=== PATIENT | female | born 2000 | race African-American/Black ===

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

== ENCOUNTER → 2018-01-23 | Outpatient (CLI) | payer MEDICAID | LOC: OD 11:52 | PROVIDERS: ATTEND Nurse Practitioner Family | DX: N12 Tubulo-interstitial nephritis, not specified as acute or chronic (principal); R30.0 Dysuria | CPT/HCPCS: 87086; 87088; 87186 ==

== ENCOUNTER 2018-04-30 15:38 | Emergency (ER) | payer MEDICAID ==
[2018-04-30] MEDS ORDERED: LIDOCAINE 1% INJ-PF (10 MG/ML) 30 ML SDV INJ ONE (15:58)
[2018-04-30] MEDS ORDERED: LIDOCAINE 4% TRANSPARENT DRESSING 5 GM KIT TP ONE (15:58)
[2018-04-30] MEDS ORDERED: LIDOCAINE 4%/TETRACAINE 0.5%/EPI 0.18% 5 ML TOPICAL SOLN TOP ONE (16:10)
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
[2018-04-30 18:50] VITALS: BP 107/63
== END 2018-04-30 17:45 | disposition home or self-care (01) ==
LOC: ER 15:38
PROC: 0HQBXZZ Repair Right Upper Arm Skin, External Approach (ICD-10-PCS; principal; 2018-04-30)
DX: S41.111A Laceration without foreign body of right upper arm, initial encounter (principal); X99.1XXA Assault by knife, initial encounter; Y92.009 Unspecified place in unspecified non-institutional (private) residence as the place of occurrence of the external cause
CPT/HCPCS: 99283; 12032; J3490

== ENCOUNTER → 2018-05-30 | Outpatient (CLI) | payer MEDICAID ==
[2018-05-30 11:18] LABS: ABSOLUTE BASOPHILS # (AUTO) 0.1 10^3/uL (0.0-0.2); ABSOLUTE EOSINOPHILS # (AUTO) 0.4 10^3/uL (0.0-0.6); ABSOLUTE LYMPHOCYTES (AUTO) 2.7 10^3/uL (0.5-4.7); ABSOLUTE MONOCYTES (AUTO) 0.8 10^3/uL (0.1-1.4); ABSOLUTE NEUT (AUTO) 4.1 10^3/uL (1.7-8.2); BASOPHILS % (AUTO) 0.6 % (0-2); EOSINOPHILS % (AUTO) 5.5 % (0-6); HEMATOCRIT 36.7 % (36.0-47.0); HEMOGLOBIN 12.1 g/dL (12.0-15.5); LYMPHOCYTES % (AUTO) 33.7 % (13-45); MEAN CORPUSCULAR HEMOGLOBIN 28.1 pg (27.0-33.4); MEAN CORPUSCULAR VOLUME 85 fl (80-97); MONOCYTES % (AUTO) 10.1 % (3-13); PLATELET COUNT 301 10^3/uL (150-450); RED BLOOD COUNT 4.31 10^6/uL (3.72-5.28); RED CELL DISTRIBUTION WIDTH 16.9 % (11.5-14.0); SEGMENTED NEUTROPHILS % (AUTO) 50.1 % (42-78); TOTAL CELLS COUNTED % (AUTO) 100 %; WHITE BLOOD COUNT 8.1 10^3/uL (4.0-10.5)
[2018-05-30 11:38] LABS: ALANINE AMINOTRANSFERASE 28 U/L (9-52); ALBUMIN 4.4 g/dL (3.5-5.0); ALKALINE PHOSPHATASE 56 U/L (38-126); ANION GAP 7 (5-19); ASPARTATE AMINO TRANSFERASE 18 U/L (14-36); BILIRUBIN,DIRECT 0.1 mg/dL (0.0-0.4); BILIRUBIN,TOTAL 0.3 mg/dL (0.2-1.3); BLOOD UREA NITROGEN 9 mg/dL (7-20); CALCIUM 10.1 mg/dL (8.4-10.2); CARBON DIOXIDE 30 mmol/L (22-30); CHLORIDE 106 mmol/L (98-107); CHOLESTEROL 140.49 mg/dL (0-200); GLUCOSE 83 mg/dL (75-110); LITHIUM 0.4 mEq/L (0.6-1.2); POTASSIUM 4.8 mmol/L (3.6-5.0); SODIUM 142.8 mmol/L (137-145); TOTAL PROTEIN 7.6 g/dL (6.3-8.2); TRIGLYCERIDES 62 mg/dL (<150)
[2018-05-30 11:48] LABS: DIRECT LDL 60 mg/dL (<100)
== END ==
LOC: OD 10:32
PROVIDERS: ATTEND Physician Assistant
DX: F34.81 Disruptive mood dysregulation disorder (principal); Z79.899 Other long term (current) drug therapy
CPT/HCPCS: 36415; 80053; 80061; 80164; 80178; 83036; 84443; 85025

== ENCOUNTER 2018-10-01 06:59 | Emergency (ER) | payer MEDICARE, MEDICAID ==
--- NOTE | 2018-10-01 08:18 | ER Document Report ---
ED General - General Chief Complaint: Ankle Pain Stated Complaint: LEFT ANKLE PAIN Time Seen by Provider: 10/01/18 08:17 Primary Care Provider: AUSTIN HEATH PA-C [Primary Care Provider] - Follow up in 3-5 days TAMMIE PEREZ MD [ACTIVE STAFF] - Follow up in 1 week TRAVEL OUTSIDE OF THE [place] IN LAST 30 DAYS: No - HPI Notes: 18 year old female to the ED with C/O left ankle pain and swelling for over one year as well as intermittent bilateral upper thigh cramping, and low back pain. States she does not recall an injury but it is possible she may have injured the ankle some time ago. 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 As for her back, she has not had any injury but admits that bending and twisting is made worse. She denies any urinary complaints. Denies any recent travel, recent immobilization, recent surgery, fevers, chills, SOB, CP, abd pain, headache. She is not on control. - Related Data Allergies/Adverse Reactions: No Known Allergies Allergy (Verified 10/01/18 07:05) Past Medical History - General Information source: Patient - Social History Smoking Status: Current Every Day Smoker Frequency of alcohol use: Social Drug Abuse: None Family History: None, Reviewed & Not Pertinent Renal/ Medical History: Denies: Hx Peritoneal Dialysis Psychiatric Medical History: Reports: Hx Bipolar Disorder Review of Systems - Review of Systems Constitutional: Chills, Fever EENT: No symptoms reported Cardiovascular: denies: Chest pain, Palpitations, Heart racing, Orthopnea, Dyspnea, Syncope Respiratory: denies: Cough, Short of breath Gastrointestinal: denies: Abdominal pain, Diarrhea, Nausea, Vomiting Genitourinary: denies: Frequency, Flank pain Musculoskeletal: Back pain, Joint pain - left ankle pain, Ankle swelling - left ankle swelling Skin: Change in color Hematologic/Lymphatic: denies: Blood clots Neurological/Psychological: No symptoms reported -: Yes All other systems reviewed and negative Physical Exam - Vital signs Vitals: Temp Pulse Resp BP Pulse Ox 97.5 F 66 16 122/61 98 10/01/18 07:04 10/01/18 07:04 10/01/18 07:04 10/01/18 07:04 10/01/18 07:04 Interpretation: Normal - General General appearance: Appears well, Alert - HEENT Head: Normocephalic, Atraumatic Eyes: Normal Pupils: PERRL - Respiratory Respiratory status: No respiratory distress Chest status: Nontender Breath sounds: Normal Chest palpation: Normal - Cardiovascular Rhythm: Regular Heart sounds: Normal auscultation Murmur: No - Abdominal Inspection: Normal Distension: No distension Bowel sounds: Normal Tenderness: Nontender Organomegaly: No organomegaly - Back Back: Tender. No: CVA tenderness - mild TTP over the right lumbar paraspinals. There is no step off or defomrity. - Extremities General upper extremity: Normal inspection, Nontender, Normal color, Normal ROM, Normal temperature General lower extremity: Tender, Edema, Normal color, Normal ROM. No: Jackson's sign Ankle: Tender, Edema Notes: the left ankle is mildly edematou and TTP over the lateral malleolus. There is no gross deformity or ecchymosis. Patella tendon is intact. non tender to palpation over the bilateral calves. patient states that palpation over the thighs does give her some pain. Non tender to bilateral knees and hip bony joints. There is no erythema, skin changes. DP pulses intact and equal. Patient has FROM of BLE against resistance with 5/5 strength in flexion and extension. - Neurological Neuro grossly intact: Yes Cognition: Normal Orientation: AAOx4 [place] Coma Scale Eye Opening: Spontaneous [place] Coma Scale Verbal: Oriented [place] Coma Scale Motor: Obeys Commands [place] Coma Scale Total: 15 Speech: Normal Motor strength normal: LUE, RUE, LLE, RLE Sensory: Normal - Psychological Associated symptoms: Normal affect, Normal mood - Skin Skin Temperature: Warm Skin Moisture: Dry Skin Color: Normal Course - Vital Signs Vital signs: Temp Pulse Resp BP Pulse Ox 98.5 F 57 L 17 124/51 L 100 10/01/18 10:50 10/01/18 10:50 10/01/18 10:50 10/01/18 10:50 10/01/18 10:50 - Laboratory Result Diagrams: 10/01/18 09:23 10/01/18 09:23 Laboratory results interpreted by me: 10/01/18 10/01/18 09:23 09:23 RDW 16.5 H Urine Ketones TRACE H Urine Ascorbic Acid 40 H - Diagnostic Test Radiology reviewed: Image reviewed, Reports reviewed - Transfer of Care Notes: 10/01/18 Impression: Left ankle swelling, muscle cramps, back pain. Labs are reassuring as well as imaging. I applied an alicia wrap to the ankle and will send her to ortho for further follow up. Will write for NSaids. patient agrees with the plan. Discharge - Discharge Clinical Impression: Left ankle pain, Leg cramps, Low back pain Condition: Good Disposition: HOME, SELF-CARE Instructions: Ankle Exercise Program ([facility]), Low Back Pain ([facility]) Additional Instructions: FOLLOW UP WITH ORTHOPEDIST. RETURN IF WORSE. USE ALICIA WRAP. TAKE MEDICINES PRESCRIBED. ICE WHEN HOME FROM WORK. Prescriptions: Naproxen [Naprosyn] 500 mg PO BID #20 tablet Forms: Return to Work Referrals: AUSTIN HEATH PA-C [Primary Care Provider] - Follow up in 3-5 days TAMMIE PEREZ MD [ACTIVE STAFF] - Follow up in 1 week
--- NOTE | 2018-10-01 09:19 | RADIOLOGY REPORT (SQ) ---
EXAM DESCRIPTION: ANKLE LEFT COMPLETE COMPLETED DATE/TIME: 10/01/2018 8:48 am REASON FOR STUDY: ankle pain, swelling COMPARISON: None. NUMBER OF VIEWS: Three views. TECHNIQUE: AP, lateral, and oblique radiographic images acquired of the left ankle. LIMITATIONS: None. FINDINGS: MINERALIZATION: Normal. BONES: No acute fracture or dislocation. No worrisome bone lesions. JOINTS: No effusions. SOFT TISSUES: No soft tissue swelling. No foreign body. OTHER: No other significant finding. IMPRESSION: NEGATIVE STUDY OF THE LEFT ANKLE. NO RADIOGRAPHIC EVIDENCE OF ACUTE INJURY. TECHNICAL DOCUMENTATION: JOB ID: [id number] [employer]- All Rights Reserved Reading location - IP/workstation name: [email or web address]
[2018-10-01 09:35] LABS: ABSOLUTE BASOPHILS # (AUTO) 0.1 10^3/uL (0.0-0.2); ABSOLUTE EOSINOPHILS # (AUTO) 0.2 10^3/uL (0.0-0.6); ABSOLUTE LYMPHOCYTES (AUTO) 2.7 10^3/uL (0.5-4.7); BASOPHILS % (AUTO) 0.7 % (0-2); EOSINOPHILS % (AUTO) 2.4 % (0-6); HEMATOCRIT 36.1 % (36.0-47.0); LYMPHOCYTES % (AUTO) 34.2 % (13-45); MEAN CORPUSCULAR HEMOGLOBIN 27.7 pg (27.0-33.4); MEAN CORPUSCULAR HGB CONC 33.2 g/dL (32.0-36.0); MEAN CORPUSCULAR VOLUME 84 fl (80-97); MONOCYTES % (AUTO) 12.5 % (3-13); PLATELET COUNT 320 10^3/uL (150-450); RED BLOOD COUNT 4.32 10^6/uL (3.72-5.28); RED CELL DISTRIBUTION WIDTH 16.5 % (11.5-14.0); SEGMENTED NEUTROPHILS % (AUTO) 50.2 % (42-78); TOTAL CELLS COUNTED % (AUTO) 100 %; WHITE BLOOD COUNT 7.9 10^3/uL (4.0-10.5)
[2018-10-01 09:50] LABS: APPEARANCE,URINE SLIGHTLY-CLOUDY; BILIRUBIN,URINE NEGATIVE (NEGATIVE); COLOR,URINE YELLOW; GLUCOSE, URINE NEGATIVE (NEGATIVE); KETONES,URINE TRACE mg/dL (NEGATIVE); LEUKOCYTE ESTERASE,URINE NEGATIVE (NEGATIVE); NITRITE,URINE NEGATIVE (NEGATIVE); PROTEIN,URINE NEGATIVE (NEGATIVE); URINE SPECIFIC GRAVITY 1.026; UROBILINOGEN,URINE NEGATIVE mg/dL (<2.0)
[2018-10-01 09:55] LABS: ANION GAP 9 (5-19); BLOOD UREA NITROGEN 14 mg/dL (7-20); CALCIUM 9.9 mg/dL (8.4-10.2); CARBON DIOXIDE 26 mmol/L (22-30); CHLORIDE 105 mmol/L (98-107); GLUCOSE 89 mg/dL (75-110); POTASSIUM 4.3 mmol/L (3.6-5.0); SODIUM 139.6 mmol/L (137-145)
[2018-10-01 10:52] VITALS: BP 124/51
== END 2018-10-01 11:01 | disposition home or self-care (01) ==
LOC: ER 06:59
DX: M25.572 Pain in left ankle and joints of left foot (principal); M25.472 Effusion, left ankle; M54.5 Low back pain; R25.2 Cramp and spasm; R50.9 Fever, unspecified; F17.200 Nicotine dependence, unspecified, uncomplicated
CPT/HCPCS: 36415; 80048; 81001; 81025; 83735; 85025; 99283

== ENCOUNTER 2018-10-06 22:08 | Emergency (ER) | payer MEDICARE, MEDICAID ==
[2018-10-06 23:24] VITALS: BP 131/58
[2018-10-07 00:42] LABS: AMORPHOUS SEDIMENT,URINE TRACE /HPF
[2018-10-07 00:43] LABS: APPEARANCE,URINE CLOUDY; BILIRUBIN,URINE NEGATIVE (NEGATIVE); COLOR,URINE YELLOW; GLUCOSE, URINE NEGATIVE (NEGATIVE)
[2018-10-07 00:44] LABS: KETONES,URINE NEGATIVE (NEGATIVE); LEUKOCYTE ESTERASE,URINE LARGE (NEGATIVE); NITRITE,URINE NEGATIVE (NEGATIVE); PROTEIN,URINE 30 mg/dL (NEGATIVE); UROBILINOGEN,URINE NEGATIVE mg/dL (<2.0)
[2018-10-07] MEDS ORDERED: IBUPROFEN 600 MG TABLET PO ONE (00:47)
--- NOTE | 2018-10-07 01:04 | ER Document Report ---
HPI - HPI Time Seen by Provider: 10/06/18 23:58 Pain Level: 4 Context: Patient is a 18-year-old female who presents the emergency department with a chief complaint of dysuria. She has had her symptoms for the past week. She is a poor historian and cannot tell me whether or not she is having vaginal discharge or not. Patient denies any sexual activity. She has a history of anxiety and depression. - ROS Notes: REVIEW OF SYSTEMS: CONSTITUTIONAL : Denies recent illness. Denies recent unintentional weight loss. Denies fever, chills, or sweats. EENT: Denies eye, ear, throat, or mouth pain, discharge, or symptoms. Denies nasal or sinus congestion. CARDIOVASCULAR: Denies chest pain. RESPIRATORY: Denies shortness of breath, cough, congestion, difficulty breathing, or wheezing. GASTROINTESTINAL: Denies nausea, vomiting, and diarrhea. Denies abdominal pain. Denies constipation. GENITOURINARY: See HPI MUSCULOSKELETAL: Denies neck and back pain. Denies joint pain or swelling. SKIN: Denies rash, itchiness, or lesions HEMATOLOGIC : Denies easy bruising or bleeding. LYMPHATIC: Denies swollen, painful, enlarged glands. NEUROLOGICAL: Denies no numbness or tingling denies weakness. Denies headache. Denies altered mental status. Denies alteration in speech. PSYCHIATRIC: Denies stress, anxiety, alteration in sleep patterns, or depression. All other systems reviewed and negative. - URINARY Urinary: REPORTS: Dysuria, Urgency, Frequency - REPRODUCTIVE Reproductive: DENIES: : Past Medical History - Social History Smoking Status: Never Smoker Family History: None, Reviewed & Not Pertinent Patient has suicidal ideation: No Patient has homicidal ideation: No Renal/ Medical History: Denies: Hx Peritoneal Dialysis Psychiatric Medical History: Reports: Hx Bipolar Disorder Vertical Provider Document - CONSTITUTIONAL Agree With Documented VS: Yes Exam Limitations: No Limitations Notes: PHYSICAL EXAMINATION: GENERAL: Appears well, healthy, well-nourished, mild distress, most likely due to anxiety. HEAD: Normocephalic, atraumatic. EYES: PERRL, conjunctiva normal, all extraocular movements intact, sclera nonicteric ABDOMEN: Normoactive bowel sounds. Soft, nontender, no guarding, no rebound tenderness, and no masses palpated. BACK: No CVA tenderness numbness noted. EXTREMITIES: Normal strength and range of motion, no pitting or edema. No cyanosis. NEUROLOGICAL: Moves all extremities upon command. Strength 5/5 in all extremities. PSYCH: Anxious. SKIN: Warm, dry. No rash, lesions, ulcerations noted. Normal skin turgor. - INFECTION CONTROL TRAVEL OUTSIDE OF THE [place] IN LAST 30 DAYS: No Course - Re-evaluation Re-evalutation: 10/07/18 01:13 I offered for the patient to have a pelvic exam done, as she is unsure of whether or not she has vaginal discharge or not. The patient is refusing at this time. She will be treated for urinary tract infection as she has a large amount of leukocytes in her urine. I have a very low suspicion for an infected kidney stone, as the patient has had her symptoms for the past week. A urine culture will be sent. She will be sent home on Keflex. Follow-up precautions were given. Verbal discharge instructions were given to the patient. They verbalized understanding. They are stable for discharge. - Vital Signs Vital signs: Temp Pulse Resp BP Pulse Ox 98.2 F 85 20 131/58 H 98 10/06/18 23:22 10/06/18 23:22 10/06/18 23:22 10/06/18 23:22 10/06/18 23:22 - Laboratory Laboratory results interpreted by me: 10/06/18 22:00 Urine Protein 30 H Urine Blood SMALL H Ur Leukocyte Esterase LARGE H Discharge - Discharge Clinical Impression: Dysuria Urinary tract infection Qualifiers: Urinary tract infection type: acute cystitis Hematuria presence: with hematuria Qualified Code(s): N30.01 - Acute cystitis with hematuria Condition: Stable Disposition: HOME, SELF-CARE Instructions: Cephalexin ([facility]), Urinary Tract Infection ([facility]) Additional Instructions: Your urine shows findings consistent with a urinary tract infection. Please take all the antibiotics as directed even if your symptoms have improved. Please follow-up with your primary care physician as needed. Return to emergency room if you develop fever >101F, persistent vomiting, become lethargic, have severe pain in your sides, or any other symptoms that are john rning to you. Prescriptions: Cephalexin [Keflex] 500 mg PO BID #14 capsule
[2018-10-07] MEDS ORDERED: CEPHALEXIN 500 MG CAPSULE PO ONE (01:11)
[2018-10-07] MEDS ORDERED: PHENAZOPYRIDINE HCL 100 MG TABLET PO ONE (01:12)
== END 2018-10-07 01:22 | disposition home or self-care (01) ==
LOC: ER 22:08
DX: N30.01 Acute cystitis with hematuria (principal)
CPT/HCPCS: 99283; 87086; 81001; A9270 ×3; J3490

== ENCOUNTER → 2018-10-11 | Outpatient (CLI) | payer MEDICARE, MEDICAID ==
[2018-10-11 17:04] LABS: BACTERIA (WET MOUNT) 4+ BACTERIA SEEN; EPITHELIALS (WET MOUNT) 3+ EPITHELIALS SEEN; T.VAGINALIS (WET MOUNT) NO TRICHOMONAS SEEN; WBCS (WET MOUNT) 2+ WBCS SEEN; YEAST (WET MOUNT) YEAST SEEN
[2018-10-11 18:26] LABS: CHLAM PCR DETECTED (NOT DETECT)
== END ==
LOC: LAB 16:43
PROVIDERS: ATTEND Nurse Practitioner Acute Care
DX: N89.8 Other specified noninflammatory disorders of vagina (principal); R30.0 Dysuria
CPT/HCPCS: 87086; 87210; 87491; 87591

== ENCOUNTER 2019-09-19 19:57 | Emergency (ER) | payer MEDICARE, MEDICAID ==
[2019-09-19] MEDS ORDERED: HYDROCODONE/ACETAMINOPHEN 5-325 MG TABLET PO ONE (21:06)
[2019-09-19] MEDS ORDERED: MORPHINE SULFATE 10 MG/ML INJ IV ONE (21:06)
--- NOTE | 2019-09-19 21:06 | ER Document Report ---
ED Medical Screen (RME) - General Chief Complaint: Abdominal Pain Stated Complaint: RIGHT SIDED ABDOMINAL PAIN Time Seen by Provider: 09/19/19 21:01 Primary Care Provider: MARGIE LEOS NP [Primary Care Provider] - Follow up as needed Notes: Patient is a 19-year-old female who presents the emergency department with a chief complaint of right lower quadrant abdominal pain. Patient states that it is a throbbing pain. States that it hurts to walk. Denies any nausea or vomiting. Patient just finished her last menstrual cycle. Denies vaginal discharge or dysuria. Exam: Very tender right lower quadrant. I have greeted and performed a rapid initial assessment of this patient. A comprehensive ED assessment and evaluation of the patient, analysis of test results and completion of medical decision making process will be conducted by an additional ED providers. TRAVEL OUTSIDE OF THE [place] IN LAST 30 DAYS: No - Related Data Allergies/Adverse Reactions: No Known Allergies Allergy (Verified 09/19/19 21:01) Past Medical History Renal/ Medical History: Denies: Hx Peritoneal Dialysis Psychiatric Medical History: Reports: Hx Bipolar Disorder Physical Exam - Vital signs Vitals: Temp Pulse Resp BP Pulse Ox 98.9 F 99 16 118/60 100 09/19/19 20:51 09/19/19 20:51 09/19/19 20:51 09/19/19 20:51 09/19/19 20:51 Course - Vital Signs Vital signs: Temp Pulse Resp BP Pulse Ox 98.9 F 99 16 118/60 100 09/19/19 20:51 09/19/19 20:51 09/19/19 20:51 09/19/19 20:51 09/19/19 20:51 Doctor's Discharge - Discharge Referrals: MARGIE LEOS NP [Primary Care Provider] - Follow up as needed
[2019-09-19] MEDS ORDERED: NORMAL SALINE 1000 ML 1,000 ML IV ONE (21:43)
[2019-09-19 23:10] LABS: ABSOLUTE MONOCYTES (AUTO) 1.5 10^3/uL (0.1-1.4); ABSOLUTE NEUT (AUTO) 11.9 10^3/uL (1.7-8.2); BASOPHILS % (AUTO) 0.3 % (0-2); EOSINOPHILS % (AUTO) 0.2 % (0-6); HEMATOCRIT 33.8 % (36.0-47.0); HEMOGLOBIN 10.9 g/dL (12.0-15.5); LYMPHOCYTES % (AUTO) 13.2 % (13-45); MEAN CORPUSCULAR HEMOGLOBIN 26.1 pg (27.0-33.4); MEAN CORPUSCULAR HGB CONC 32.2 g/dL (32.0-36.0); MEAN CORPUSCULAR VOLUME 81 fl (80-97); MONOCYTES % (AUTO) 9.4 % (3-13); PLATELET COUNT 460 10^3/uL (150-450); RED BLOOD COUNT 4.17 10^6/uL (3.72-5.28); RED CELL DISTRIBUTION WIDTH 16.7 % (11.5-14.0); SEGMENTED NEUTROPHILS % (AUTO) 76.9 % (42-78); TOTAL CELLS COUNTED % (AUTO) 100 %; WHITE BLOOD COUNT 15.5 10^3/uL (4.0-10.5)
[2019-09-19 23:31] LABS: ALBUMIN 4.5 g/dL (3.5-5.0); ALKALINE PHOSPHATASE 67 U/L (38-126); ANION GAP 8 (5-19); ASPARTATE AMINO TRANSFERASE 24 U/L (14-36); BILIRUBIN,TOTAL 0.3 mg/dL (0.2-1.3); BLOOD UREA NITROGEN 16 mg/dL (7-20); CARBON DIOXIDE 27 mmol/L (22-30); CHLORIDE 100 mmol/L (98-107); GLUCOSE 126 mg/dL (75-110); POTASSIUM 4.9 mmol/L (3.6-5.0); TOTAL PROTEIN 8.2 g/dL (6.3-8.2)
[2019-09-20 00:27] LABS: APPEARANCE,URINE SLIGHTLY-CLOUDY; BILIRUBIN,URINE NEGATIVE (NEGATIVE); COLOR,URINE YELLOW; GLUCOSE, URINE NEGATIVE (NEGATIVE); KETONES,URINE NEGATIVE (NEGATIVE); LEUKOCYTE ESTERASE,URINE SMALL (NEGATIVE); NITRITE,URINE NEGATIVE (NEGATIVE); PROTEIN,URINE NEGATIVE (NEGATIVE); URINE SPECIFIC GRAVITY 1.015; UROBILINOGEN,URINE NEGATIVE mg/dL (<2.0)
--- NOTE | 2019-09-20 00:48 | ER Document Report ---
ED General - General Chief Complaint: Abdominal Pain Stated Complaint: RIGHT SIDED ABDOMINAL PAIN Time Seen by Provider: 09/19/19 21:01 Primary Care Provider: MARGIE LEOS NP [Primary Care Provider] - Follow up as needed Notes: 19-year-old female with a mental health past medical history presenting today with right upper quadrant pain. States that the pain is been there for approximately 1 month. States that the pain comes and goes and when it does occur it is sharp, stabbing and lasts for 1 to 2 minutes. States that she takes Tylenol 1 pill at home which helps to alleviate her pain. States that the pain was pretty severe tonight which brought her in. She is not certain if food aggravates the pain. But states that she did have a burger today which she believes aggravated her pain. She says it feels like there is something stuck there. Last menstrual period ended yesterday. She denies being sexually active. She denies any headaches, fevers, chills, shortness of breath pain with urination or additional symptoms. Last bowel movement was yesterday. TRAVEL OUTSIDE OF THE [place] IN LAST 30 DAYS: No - Related Data Allergies/Adverse Reactions: No Known Allergies Allergy (Verified 09/19/19 21:01) Home Medications: BEHAVIOR MEDICATIONS Past Medical History - Social History Smoking Status: Never Smoker Frequency of alcohol use: None Drug Abuse: None Family History: None, Reviewed & Not Pertinent Patient has homicidal ideation: No Renal/ Medical History: Denies: Hx Peritoneal Dialysis Psychiatric Medical History: Reports: Hx Bipolar Disorder Review of Systems - Review of Systems Constitutional: No symptoms reported EENT: No symptoms reported Cardiovascular: No symptoms reported Respiratory: No symptoms reported Gastrointestinal: See HPI Genitourinary: No symptoms reported Female Genitourinary: No symptoms reported Musculoskeletal: No symptoms reported Physical Exam - Vital signs Vitals: Temp Pulse Resp BP Pulse Ox 98.9 F 99 16 118/60 100 09/19/19 20:51 09/19/19 20:51 09/19/19 20:51 09/19/19 20:51 09/19/19 20:51 Interpretation: Normal - Notes Notes: Adult General: GENERAL: Alert, interacts well. No acute distress HEAD: Normocephalic, atraumatic EYES: Extraocular movements intact. ENT: Oral mucosa moist, tongue midline. Oropharynx unremarkable. Airway patent. Nares patent, sinuses nontender, ear canals unremarkable, TMs intact. NECK: Full range of motion. Supple. Trachea midline. No lymphadenopathy. LUNGS: Clear to auscultation bilaterally, no wheezes, rales, or rhonchi. No respiratory distress. Nontender chest wall. HEART: Regular rate and rhythm. No murmurs, rubs or gallops. ABDOMEN: Soft,tender right upper quadrant. Nondistended. (+) [place] sign. Bowel sounds present in all 4 quadrants. GENITOURINARY: Deferred EXTREMITIES: Moves all 4 extremities spontaneously. BACK: Moves all extremities with full range of motion. NEUROLOGICAL: Alert and oriented x3. Normal speech. PSYCH: Normal affect, normal mood. SKIN: Warm, dry, normal turgor. Two keloids on right upper arm Course - Re-evaluation Re-evalutation: 09/20/19 00:51 Patient's white count is 10.9. Patient is non-tachycardic. Afebrile. Pending results of CT scan. 09/20/19 01:[address] scan shows her gallbladder is nondistended, without inflammatory changes. Pancreas is unremarkable, appendix is not visualized but there is no inflammatory pericecal changes. Pelvic contents are also unremarkable. She was reevaluated and she is resting comfortably in her bed. States that her pain has decreased down to what it is. Patient AST is 24, ALT is 11. lipase is 49.6. 09/20/19 02:20 Patient's ultrasound shows no gallstones, no gallbladder thickening, no free fluid. Discussed results of ultrasound with the patient. Patient states that she is no longer in pain. Continues to ask if she can go home. Discussed with patient importance of following up with primary care as soon as possible due to unclear etiology of pain. If her symptoms worsen or she develops new symptoms she can follow-up in the emergency department. Patient acknowledges and verbalizes understanding of plan. All questions answered. - Vital Signs Vital signs: Temp Pulse Resp BP Pulse Ox 98.6 F 78 14 106/54 L 99 09/20/19 02:39 09/20/19 02:39 09/20/19 02:39 09/20/19 02:39 09/20/19 02:39 - Laboratory Result Diagrams: 09/19/19 22:42 09/19/19 22:42 Laboratory results interpreted by me: 09/19/19 09/19/19 09/20/19 22:42 22:42 00:13 WBC 15.5 H Hgb 10.9 L Hct 33.8 L MCH 26.1 L RDW 16.7 H Plt Count 460 H Absolute Neuts (auto) 11.9 H Absolute Monos (auto) 1.5 H Sodium 135.1 L Glucose 126 H Urine Blood SMALL H Ur Leukocyte Esterase SMALL H Discharge - Discharge Clinical Impression: Abdominal pain Qualifiers: Abdominal location: right upper quadrant Qualified Code(s): R10.11 - Right upper quadrant pain Condition: Stable Disposition: HOME, SELF-CARE Instructions: Abdominal Pain ([facility]) Additional Instructions: Please follow-up with your primary care provider soon as soon as possible for follow-up. Please return to the emergency department if your symptoms worsen or do not improve. Referrals: MARGIE LEOS NP [Primary Care Provider] - Follow up as needed
--- NOTE | 2019-09-20 01:03 | RADIOLOGY REPORT (SQ) ---
CLINICAL INDICATION: RLQ abd pain. . TECHNIQUE: Contrast enhanced spiral axial CT imaging was obtained of the abdomen and pelvis with multiplanar reconstructions. This exam was performed according to our departmental dose-optimization program, which includes automated exposure control, adjustment of the mA and/or kV according to patient size and/or use of iterative reconstruction techniques. Additional delayed phase imaging COMPARISON: None. CORRELATION: None. FINDINGS: Abdomen: The lung bases are grossly clear. The heart is of normal size. No evidence of pleural or pericardial fluid. The liver is of normal size contour and attenuation. The gallbladder is nondistended without inflammatory change. The pancreas is unremarkable. The spleen is unremarkable. The adrenals are unremarkable. The kidneys appear grossly normal without evidence of urolithiasis or hydronephrosis. There is no evidence of free air. No free fluid. No bulky adenopathy. Abdominal aorta is nonaneurysmal. Pelvis: The bowel is nonobstructed. The bowel is unopacified with oral contrast. Pelvic contents are unremarkable. The appendix is not seen. No pericecal inflammatory change. Visualized bones are unremarkable. IMPRESSION: No acute intra-abdominal process. Although the appendix is not directly seen, no pericecal inflammatory changes are identified.
--- NOTE | 2019-09-20 02:12 | RADIOLOGY REPORT (SQ) ---
Ultrasound right upper quadrant on 09/20/2019 at 1:37 AM CLINICAL INDICATION: Right upper quadrant pain COMPARISON: CT from 09/20/2019 FINDINGS: Multiple sonographic images are obtained throughout the right upper quadrant, both transverse and sagittal images are obtained. Pancreas is obscured by overlying bowel gas. Visualized liver is homogeneous without focal liver lesion or evidence of intrahepatic biliary ductal dilatation. Right kidney shows no hydronephrosis. Visualized hepatic vasculature is patent and with a normal directional flow. There are no gallstones, gallbladder wall thickening or pericholecystic fluid. No free fluid is noted in the right upper quadrant. The common duct measures 2 mm which is within normal limits mitigating against obstruction of the biliary tree. IMPRESSION: Unremarkable exam.
[2019-09-20 02:43] VITALS: BP 106/54
== END 2019-09-20 02:43 | disposition home or self-care (01) ==
LOC: ER 19:57
DX: R10.11 Right upper quadrant pain (principal); Z79.899 Other long term (current) drug therapy
CPT/HCPCS: 99284; 96360; 36415; 83690; 85025; 81025; 80053; 81001; 76705; 74177; J7030; A9270